=== PATIENT | male | born 1940 | race Caucasian/White ===

== ENCOUNTER → 2020-04-19 11:03 | Outpatient (CLI) | payer MEDICARE, OTHER, SELFPAY ==
--- NOTE | ~2020-04-19 | CT_ITS ---
EXAMINATION:CT lung screening DATE: 04/19/2020 11:17 INDICATION: Personal history of nicotine dependence. Current smoker with 55 pack year history. TECHNIQUE: Computed tomography (CT) of the chest was performed without intravenous contrast. Automate d exposure control and iterative reconstruction technique were employed. The dose-length product (DLP ) was 60.55 mGy-cm. COMPARISON: Chest CT 01/16/2019 FINDINGS: There is mild emphysema. There is mild atelectasis in right lower lobe. There are chronic p eripheral reticular opacities in the upper lungs. Calcified left lung nodules and calcified left marbella r and mediastinal lymph nodes are consistent with old granulomatous disease. Again seen are multiple scattered nodules measuring up to 5 mm. No pleural effusion. The heart size is normal. There are neris nary artery calcifications. No pericardial effusion. There are changes of posterior fusion procedure in thoracolumbar spine. There are bridging endplate osteophytes throughout the spine and along the álvarez praspinous ligament. There is ankylosis of the facet joints at most levels. 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 IMPRESSION: 1. Lung-RADS category 2: Benign appearance or behavior. Continue annual screening with noncontrast lo w-dose chest CT in 12 months. Reviewed, dictated and finalized at location [facility]. IMPRESSION: 1. Lung-RADS category 2: Benign appearance or behavior. Continue annual screeni ng with noncontrast low-dose chest CT in 12 months.
== END ==
PROVIDERS: PCP Internal Medicine; Visit Provider Internal Medicine
DX: Z87.891 Personal history of nicotine dependence (principal)
CPT/HCPCS: G0297

== ENCOUNTER → 2021-04-25 12:52 | Outpatient (CLI) | payer MEDICARE, OTHER, SELFPAY ==
--- NOTE | ~2021-04-25 | CT_ITS ---
EXAMINATION: CT diagnostic chest wo con EXAM DATE: 04/25/2021 13:07 INDICATION: Pulmonary nodule follow-up. TECHNIQUE: Spiral CT of the chest without contrast. Axial, coronal and sagittal images of the chest were reviewed. Coronal maximum intensity pixel images of chest reviewed. The dose-length product ( DLP) for this examination was 55.65 mGy-cm. The exposure was tailored according to patient size (aut o mA exposure control), and iterative reconstruction (ASIR) was used as additional dose reduction rigo hnique. Comparison is made to prior examination from 04/19/2020. FINDINGS: The lungs are clear. There are no pleural or pericardial effusions. Small amount of en dobronchial debris without focal nodule. Mild right lower lobe atelectasis. Several other scattered p ulmonary nodules 4 mm or less unchanged, postinfectious. There is mild emphysema. No suspicious pulmo nary nodules. There is no mediastinal, hilar or axillary lymphadenopathy. There is no pneumothorax . Heart normal in size. There is mild coronary arterial calcification, arterial sclerosis. Upper abdomen is unremarkable. Thoracolumbar fusion hardware. Patient has diffuse idiopathic skeletal hy perostosis (DISH). There are no osteoblastic or osteolytic lesions identified. IMPRESSION: 1. Scattered postinfectious residua. 2. Mild emphysema. Reviewed, dictated and finalized at location [facility].
== END ==
PROVIDERS: PCP Internal Medicine; Visit Provider Internal Medicine
DX: Z12.2 Encounter for screening for malignant neoplasm of respiratory organs (principal); Z87.891 Personal history of nicotine dependence
CPT/HCPCS: 71250

== ENCOUNTER → 2022-03-16 15:01 | Outpatient (CLI) | payer MEDICARE, OTHER, SELFPAY ==
--- NOTE | ~2022-03-16 | CT_ITS ---
EXAMINATION: CT diagnostic chest wo con DATE: 03/16/2022 15:14 INDICATION: Tobacco use. Pulmonary nodules. TECHNIQUE: Computed tomography (CT) of the chest was performed without intravenous contrast. Automate d exposure control and iterative reconstruction technique were employed. Exam dose: 46.86 mGy-cm tot al exam DLP. COMPARISON: 04/25/2021 CT chest FINDINGS: There is chronic mild peripheral pulmonary interstitial prominence, possibly usual intersti tial pneumonia or interstitial fibrosis. Mild emphysematous changes of the lungs. There is discoid atelectasis or scarring of the right lower lobe. Stable approximately 4.5 mm right lower lobe pulmonary nodule (series 4 image 99). Several left lower lobe calcified pulmonary granulomas are noted. No pulmonary infiltrate or consolidation or interval pulmonary mass lesion since 04/25/2021. No hilar or mediastinal mass lesion or lymphadenopathy. No thoracic aortic aneurysm Calcified subcarinal nodes. Normal heart size. No pericardial or pleural effusion. Coronary artery calcifications are noted. Pedicle screws and rods are noted in the lower thoracic and lumbar area. IMPRESSION: Mild emphysema and chronic probably peripheral interstitial pulmonary fibrotic changes Old granulomatous disease Reviewed, dictated and finalized at [facility]. Reviewed, dictated and finalized at location B. IMPRESSION: Mild emphysema and chronic probably peripheral interstitial pulmon sanna fibrotic changes Old granulomatous disease
== END ==
PROVIDERS: PCP Nurse Practitioner Family; Visit Provider Nurse Practitioner Family
DX: Z72.0 Tobacco use (principal); R04.2 Hemoptysis; J43.9 Emphysema, unspecified; R91.8 Other nonspecific abnormal finding of lung field
CPT/HCPCS: 71250

== ENCOUNTER → 2023-04-03 10:46 | Outpatient (CLI) | payer MEDICARE, OTHER, SELFPAY ==
--- NOTE | ~2023-04-03 | US_ITS ---
EXAMINATION: US thyroid DATE: 04/03/2023 11:06 INDICATION: Nontoxic goiter, unspecified. TECHNIQUE: Multiple ultrasound images of the thyroid were obtained. COMPARISON: None. FINDINGS: The right thyroid lobe measures 4.1 x 2.0 x 2.5 cm. The left thyroid lobe measures 5.2 x 1.8 x 1.9 c m. In the left thyroid lobe, there is a 9 mm solid, hypoechoic, more than tall nodule with lobulated margin without echogenic foci (TI-RADS TR4). In the left thyroid lobe, there is a 2.1 cm solid, hypo echoic, wider than tall nodule with smooth margin without echogenic foci (TR4). IMPRESSION: 1. Thyroid nodules. Ultrasound-guided fine-needle aspiration of the 2.1 cm left thyroid nodule is rec ommended. Reviewed, dictated and finalized at location A. IMPRESSION: 1. Thyroid nodules. Ultrasound-guided fine-needle aspiration of the 2.1 cm left thyroid nodule is recommended.
== END ==
PROVIDERS: PCP Nurse Practitioner Family; Visit Provider Nurse Practitioner Family
DX: E04.2 Nontoxic multinodular goiter (principal); R13.10 Dysphagia, unspecified
CPT/HCPCS: 76536

== ENCOUNTER 2023-05-02 12:54 | Outpatient (CLI) | payer MEDICARE, OTHER, SELFPAY ==
--- NOTE | ~2023-05-02 | US_ITS ---
EXAMINATION: US FNA w image guidance DATE: 05/02/2023 13:44 INDICATION: Right thyroid nodule. TECHNIQUE: The procedure and its benefits and risks were discussed with the patient. Risks specifically discusse d included bleeding. The patient verbalized understanding of the risks and agreed to proceed. The nec k was prepped and draped in the usual sterile manner. 1% lidocaine was used for local anesthesia. 7 passes were made with a 25G needle into the lesion under ultrasound guidance. There were no immedia te complications. FINDINGS: Grayscale ultrasound images demonstrate needles advanced into a 2.1 cm nodule in right thyroid lobe f or biopsy. IMPRESSION: 1. Ultrasound-guided fine needle aspiration of a right thyroid nodule. Reviewed, dictated and finalized at location A.
== END 2023-05-02 12:55 | disposition home or self-care (01) ==
LOC: ANHIMG 12:55
PROVIDERS: PCP Nurse Practitioner Family; Visit Provider Otolaryngology
DX: E04.1 Nontoxic single thyroid nodule (principal)
CPT/HCPCS: 10005; 88173; 88305